=== PATIENT | male | born 1970 | race African-American/Black ===

== ENCOUNTER 2017-03-03 16:03 | Emergency (ER) | payer OTHER ==
[~2017-03-03] VITALS: Ht 195.6 cm; Wt 132.1 kg
[~2017-03-03 16:03] MED LIST: ABILIFY2 MG PO; ACIPHEX20 MG PO; ARIPIPRAZOLE5 MG PO; CARBAMAZEPINE100 MG PO; CARBAMAZEPINE200 MG PO; PANTOPRAZOLE SO40 MG PO; PRAVASTATIN SOD40 MG PO; TEGRETOL100 MG PO; ZETIA10 MG PO; ZOCOR20 MG PO
[2017-03-03 16:45] LABS: POINT-OF-CARE METER ID UU13113702
[2017-03-03 16:52] LABS: EOSINOPHIL (%) 0 % (0-5); HEMATOCRIT 42.5 % (38.0-50.0); IMMATURE GRANULOCYTE COUNT 0.1 K/uL; INSTRUMENT ABS NEUTROPHIL CT 5.2 K/uL; LYMPHOCYTE COUNT 2.4 K/uL (1.0-2.8); MCHC 34.4 G/DL (30.0-36.0); MCV 81.4 FL (86-99); MEAN PLAT.VOLUME 9.1 uM^3 (9.0-12.4); MONOCYTE (%) 6.1 % (3-12); MONOCYTE COUNT 0.5 K/uL (0-0.8); NEUTROPHIL (%) 63.3 % (45-76); NEUTROPHIL COUNT 5.2 K/uL (1.8-6.4); PLATELET COUNT 244 K/uL (156-360); RBC DIS.WIDTH-CV 12.5 % (11.8-14.6); RBC DIS.WIDTH-SD 37.1 % (39-53); RED BLOOD COUNT 5.22 M/uL (4.00-5.50); WHITE BLOOD COUNT 8.2 K/uL (4.1-10.2)
[2017-03-03 17:08] LABS: CHLORIDE 105 mEq/L (99-109); POTASSIUM 3.5 mEq/L (3.7-5.4); SODIUM 139 mEq/L (136-147)
[2017-03-03 17:09] LABS: GLUCOSE 125 mg/dL (70-99)
[2017-03-03 17:11] LABS: ANION GAP 8 MEQ/L (2-14)
[2017-03-03 17:13] LABS: GFR ESTIMATE (CALCULATED) > 59 mL/min/; TROP-I INTERPRETATION NEGATIVE; TROPONIN-I < 0.01 ng/mL (0.0-0.30)
[2017-03-03 17:14] LABS: UREA NITROGEN (BUN) 11 mg/dL (9-23)
[2017-03-03 18:11] LABS: POINT-OF-CARE METER ID UU13113702
[2017-03-03 18:16] LABS: SERUM ETHYL ALCOHOL < 10 mg/dL
[2017-03-03 20:39] VITALS: BP 101/66
== END 2017-03-03 20:40 | disposition home or self-care (01) ==
LOC: EME 16:03
PROVIDERS: Emergency Medicine
DX: R55 Syncope and collapse (principal); Z87.820 Personal history of traumatic brain injury; F17.200 Nicotine dependence, unspecified, uncomplicated
CPT/HCPCS: 80048; 82948; 84484; 85025; 93005; 99281; 99285; G0480; J0696; J7030